=== PATIENT | male | born 1990 | race African-American/Black ===

== ENCOUNTER 2016-10-22 20:40 | Emergency (ER) | payer OTHER ==
[~2016-10-22] VITALS: Ht 180.3 cm; Wt 68.0 kg
[2016-10-22 21:02] VITALS: BP 118/75
--- NOTE | 2016-10-22 21:14 | ED SKIN/ALLERGY COMPLAINT ---
History of Present Illness General Chief Complaint: Skin Rash/ Abcess Stated Complaint: "ABSCESS ON BUTT" PER PT Source: patient Exam Limitations: no limitations Vital Signs & Intake/Output Vital Signs & Intake/Output Vital Signs Date Time Temp Pulse Resp B/P B/P Pulse O2 O2 Flow FiO2 Mean Ox Delivery Rate 10/22 210 100.5 79 18 118/75 97 Room Air Allergies Coded Allergies: No Known Allergies (10/22/16) Reconcile Medications Amoxicillin/Potassium Clav (Augmentin 875-125 Tablet) 875 MG-125 MG TABLET 1 TAB PO BID ABSCESS Naproxen (Naprosyn) 500 MG TABLET 1 TAB PO BID PRN PAIN Triage Note: RECEIVED 25 YO MALE C/O ABSCESS ON LEFT INNER GLUTEAL AREA X FEW DAYS, GETTING WORSE. PT ALSO HAS A SORE ON LEFT LOWER ABDOMIN. Triage Nurses Notes Reviewed? yes Onset: Gradual Duration: day(s): (3) Timing: recent history Severity: moderate Location: NEAR RECTUM Possible Factors: no cause identified HPI: Patient is a 25-year-old male with no medical history, no daily medications presenting to the emergency Department chief complaint of cyst to his gluteal region. Reports it's been going on for the past 3 days. Pain worse with sitting and palpation. Denies any problems with bowel movements. Denies any fevers or chills chest pain shortness of breath. Denies taking anything to help with symptoms. He has never had to have a cyst drained before. Denies any urinary symptoms. after taking aspirin with little to no relief. Denies any discharge from the region. (EDWARD DAVIES) Past History Travel History Traveled to [place] past 21 day No Medical History Any Pertinent Medical History? see below for history Neurological: NONE EENT: NONE Cardiovascular: NONE Respiratory: asthma Gastrointestinal: NONE Hepatic: NONE Renal: NONE Musculoskeletal: NONE Psychiatric: NONE Endocrine: NONE Blood Disorders: NONE Cancer(s): NONE Surgical History Surgical History: non-contributory Psychosocial History What is your primary language Thai Tobacco Use: Never used Family History Hx Contributory? No (EDWARD DAVIES) Review of Systems Review of Systems Constitutional: Reports: no symptoms. Comments Review of systems: See HPI, All other systems negative. Constitutional, no chills fever or weight loss HEENT: No visual changes no sore throat no congestion Cardiovascular: No chest pain ,palpitation Skin, no jaundice Respiratory: No dyspnea cough sputum or hemoptysis GI: No nausea no vomiting : No dysuria No hematuria Muscle skeletal: no back pain, no neck pain, Neurologic: No numbness Psych: No stress anxiety Immunology: No splenectomy or history of AIDS (EDWARD DAVIES) Physical Exam Physical Exam General Appearance: well developed/nourished, no apparent distress, alert, awake , comfortable Comments: Well-developed well-nourished person in no acute distress HEENT: Nose is atraumatic. Neck: Normal inspection Back: Nontender Cardiovascular: Regular rate and rhythms no murmurs rubs or gallops, normal JVP Respiratory: Chest nontender. No respiratory distress.breath sounds clear to auscultation bilaterally Abdomen: Soft, nontender nondistended, Extremity: No edema Neuro: Alert oriented x3 Skin: Erythematous, fluctuant, raised lesion approximately 2 cm in size noted on the left gluteal fold approximately 4 cm from the rectum at the 11 o'clock position. Tender to palpation. No discharge appreciated. No other lesions noted in the area. Psych: Mood and affect is normal, memory and judgment is normal. (EDWARD DAVIES) Progress Differential Diagnosis: ABSCESS, CELLULITIS, PYLENIDOL CYST Plan of Care: Orders Procedure Date/time Status TRUNK AREA CULTURE 10/23 2147 Active Microbiology 10/23 2215 TRUNK: Culture & Sensitivity - RECD 10/23 2215 TRUNK: Gram Stain - RECD Departure Departure Time of Disposition: 2225 Disposition: HOME OR SELF CARE Condition: Stable Clinical Impression Primary Impression: Abscess Referrals: PATIENT HAS NO PRIMARY CARE DR (PCP/Family) Additional Instructions: Follow-up with your primary care physician call to make an appointment. Warm soaks in the tub several times a day. Take naproxen as prescribed for pain. Take antibiotics as prescribed to help with infection. We will call you if he culture results require any antibiotic change. Return for worsening symptoms or concerns. Departure Forms: Customer Survey General Discharge Information Prescriptions: Current Visit Scripts Amoxicillin/Potassium Clav (Augmentin 875-125 Tablet) 1 TAB PO BID #20 TAB Naproxen (Naprosyn) 1 TAB PO BID PRN PAIN #20 TAB (EDWARD DAVIES) PA/GLOBAL MARKETING SPECIALIST Co-Sign Statement Statement: ED Attending supervision documentation- I saw and evaluated the patient. I have also reviewed all the pertinent lab results and diagnostic results. I agree with the findings and the plan of care as documented in the PA's/GLOBAL MARKETING SPECIALIST's documentation. x I have reviewed the ED Record and agree with the PA's/GLOBAL MARKETING SPECIALIST's documentation. [] Additions or exceptions (if any) to the PAs/GLOBAL MARKETING SPECIALIST's note and plan are summarized below: [] (ANTHONY HUNTER,GEORGETTE) Procedures Incision and Drainage Site: LEFT GLUTEAL FOLD Blade Size: 11 I & D Procedure: Yes: betadine prep, sterile drapes applied, sterile dressing applied. No: wick placed. Progress: Approximately 5 mL of thin purulent fluid expelled after incision. Dressing placed after irrigation with Betadine and approximately 250 mL of saline. (EDWARD DAVIES)
[2016-10-22] MEDS ORDERED: AUGMENTIN 875-1 EACH PO (22:28)
[2016-10-22] MEDS ORDERED: NAPROSYN500 M1 PO (22:28)
== END 2016-10-22 22:54 ==
LOC: ERH 20:40
DX: L02.31 Cutaneous abscess of buttock (principal)
CPT/HCPCS: 87070; 96372; J1885

== ENCOUNTER 2016-12-02 08:22 | Emergency (ER) | payer SELFPAY ==
[~2016-12-02] VITALS: Ht 180.3 cm; Wt 71.2 kg
[~2016-12-02 08:22] MED LIST: AUGMENTIN 875-1 EACH PO; NAPROSYN500 M1 PO
--- NOTE | 2016-12-02 08:36 | ED DYSPNEA/ASTHMA COMPLAINT ---
History of Present Illness General Chief Complaint: Wheezing/Asthma Stated Complaint: ASTHMA Source: patient, old records, friend Exam Limitations: no limitations Vital Signs & Intake/Output Vital Signs & Intake/Output Vital Signs Date Time Temp Pulse Resp B/P B/P Pulse O2 O2 Flow FiO2 Mean Ox Delivery Rate 12/02 0915 96.9 84 18 128/81 96 Room Air Room Air 12/02 0857 98 12/02 0833 95 Room Air Room Air 12/02 0825 98.2 84 22 102/75 95 Room Air Allergies Coded Allergies: No Known Allergies (10/22/16) Reconcile Medications Albuterol Sulfate (Proventil Hfa) 90 MCG HFA.AER.AD 2 PUF INH 4 TIMES/DAY PRN SHORTNESS OF BREATH (Reported) Albuterol Sulfate (Proair Hfa) 90 MCG HFA.AER.AD 2-4 PUF INH Q4-6 PRN PRN shortness of breath Prednisone 20 MG TABLET 1 TAB PO BID asthma Triage Note: 26 YEAR OLD MALE STATES THAT HIS ASTHMA STARTED TO BOTHER HIM LAST PM AND HE DOES NOT HAVE HIS INHALERS. PT NOTED WITH AUDIBLE WHEEZING AT TRIAGE Triage Nurses Notes Reviewed? yes Onset: Evening Duration: hour(s):, constant, continues in ED Timing: recent history Severity: moderate Activities at Onset: activity Prior Episodes/Possible Cause: occasional episodes Associated Symptoms: wheezing HPI: After bowling last night patient complains of nonproductive cough progressive wheezing. He left his inhaler in [place]. Denies fever chills nausea vomiting diarrhea abdominal pain chest pain headache dysuria rash bleeding. Past History Travel History Traveled to [place] past 21 day No Medical History Any Pertinent Medical History? see below for history Neurological: NONE EENT: NONE Cardiovascular: NONE Respiratory: asthma Gastrointestinal: NONE Hepatic: NONE Renal: NONE Musculoskeletal: NONE Psychiatric: NONE Endocrine: NONE Blood Disorders: NONE Cancer(s): NONE Surgical History Surgical History: non-contributory Psychosocial History What is your primary language Albanian Tobacco Use: Never used ETOH Use: denies use Illicit Drug Use: denies illicit drug use Family History Hx Contributory? No Review of Systems Review of Systems Constitutional: Reports: no symptoms. EENTM: Reports: no symptoms. Respiratory: Reports: see HPI, cough, short of breath, wheezing. Denies: sputum production. Cardiovascular: Reports: no symptoms. GI: Reports: no symptoms. Genitourinary: Reports: no symptoms. Musculoskeletal: Reports: no symptoms. Skin: Reports: no symptoms. Neurological/Psychological: Reports: no symptoms. Hematologic/Endocrine: Reports: no symptoms. Immunologic/Allergic: Reports: no symptoms. All Other Systems: Reviewed and Negative Physical Exam Physical Exam General Appearance: well developed/nourished, alert, awake, anxious, mild distress, thin Head: atraumatic, normal appearance Eyes: Bilateral: normal appearance, PERRL, EOMI. Ears, Nose, Throat: normal pharynx, normal ENT inspection, hearing grossly normal Neck: normal inspection, supple, full range of motion, no midline tenderness Respiratory: chest non-tender, decreased breath sounds, wheezing Cardiovascular: regular rate/rhythm, normal peripheral pulses, norml femoral pulses equa Peripheral Pulses: 4+ carotid (R), 4+ carotid (L) Gastrointestinal: normal bowel sounds, soft, non-tender, no organomegaly Extremities: normal inspection, normal capillary refill, normal range of motion, no edema Neurologic/Psych: no motor/sensory deficits, awake, alert, oriented x 3, normal gait, normal mood/affect, house carpenter II-XII nml as tested Skin: intact, normal color, warm/dry Lymphatic: no anterior cervical edis Core Measures ACS in differential dx? No Severe Sepsis Present: No Septic Shock Present: No Progress Differential Diagnosis: asthma, bronchitis, pneumonia Plan of Care: Current Medications Sig/Pablito Start time Last Medication Dose Stop Time Status Admin Albuterol Sulfate 3 ML ONCE ONE 12/02 0845 UNVr (Proventil) 12/02 0846 Albuterol Sulfate 3 ML ONCE ONE 12/02 0845 UNVr (Proventil) 12/02 0846 Ipratropium [place] 2.5 ML ONCE ONE 12/02 0845 UNVr (Atrovent) 12/02 0846 Prednisone 60 MG ONCE ONE 12/02 0845 UNVr 12/02 0846 Initial ED EKG: none Departure Departure Time of Disposition: 929 Disposition: HOME OR SELF CARE Condition: Stable Clinical Impression Primary Impression: Asthma exacerbation Referrals: PATIENT HAS NO PRIMARY CARE DR (PCP/Family) Departure Forms: Customer Survey General Discharge Information Prescriptions: Current Visit Scripts Albuterol Sulfate (Proair Hfa) 2-4 PUF INH Q4-6 PRN PRN shortness of breath #1 INHAL Ref 1 Prednisone 1 TAB PO BID #10 TAB Critical Care Note Critical Care Note Critical Care Time: non-applicable
[2016-12-02] MEDS ORDERED: PROVENTIL HFA6.7 GM INH (08:45)
[2016-12-02] MEDS ORDERED: PROAIR HFA8.5 GM INH (09:12)
[2016-12-02] MEDS ORDERED: PREDNISONE20 M1 PO (09:12)
[2016-12-02 09:15] VITALS: BP 128/81
== END 2016-12-02 09:28 ==
LOC: ERH 08:22
DX: J45.901 Unspecified asthma with (acute) exacerbation (principal)
CPT/HCPCS: 1263